=== PATIENT | male | born 1935 | race Asian ===

== ENCOUNTER 2019-06-26 06:33 | Emergency (ER) | payer MEDICARE ==
[~2019-06-26] VITALS: Ht 165.1 cm; Wt 70.5 kg
[2019-06-26 06:40] VITALS: BP 0/0
[2019-06-26] MEDS ORDERED: SODIUM CHLORIDE 0.9% 2,100 ML IV ONE (06:47)
[2019-06-26] MEDS ORDERED: 0.9% SODIUM CHLORIDE 10 ML SYRINGE IVP PRN (07:00)
[2019-06-26 07:03] LABS: BASOPHILS % (AUTO) 0.4 % (0.0-2.0); EOSINOPHILS % (AUTO) 2.4 % (1.0-6.0); HEMATOCRIT 24.8 % (41-53); HEMOGLOBIN 7.8 g/dL (13.5-17.5); LYMPHOCYTES # (AUTO) 3.8 K/uL (1.0-4.8); LYMPHOCYTES % (AUTO) 84.2 % (22.0-44.0); MEAN CORPUSCULAR HEMOGLOBIN 31.4 pg (26.0-34.0); MEAN CORPUSCULAR HGB CONC 31.3 G/dL (31.0-37.0); MEAN CORPUSCULAR VOLUME 100 fL (80-100); MONOCYTES # (AUTO) 0.1 K/uL (0.1-1.0); MONOCYTES % (AUTO) 2.7 % (2.0-9.0); NEUTROPHILS # (AUTO) 0.5 K/uL (1.8-7.7); NEUTROPHILS % (AUTO) 10.3 % (40.0-70.0); PLATELET COUNT (AUTO) 98 K/uL (150-450); RED BLOOD CELL COUNT(AUTO) 2.47 MIL/uL (4.50-5.90); RED CELL DISTRIBUTION WIDTH 13.6 % (11.5-14.5)
[2019-06-26 07:17] LABS: INR 1.6 (0.9-1.1); PROTHROMBIN TIME 16.7 SEC (9.4-11.6)
[2019-06-26 07:29] LABS: LACTIC ACID 12.1 mmol/L (0.4-2.0)
[2019-06-26] MEDS ORDERED: AMLO5TAB9 PO (07:45)
[2019-06-26 07:46] LABS: ALANINE AMINOTRANSFERASE 167 U/L (12-78); ALBUMIN 1.4 g/dL (3.4-5.0); ALKALINE PHOSPHATASE 49 U/L (46-116); ANION GAP 14 mmol/L (8-16); ASPARTATE AMINOTRANSFERASE 203 U/L (15-37); BILIRUBIN,TOTAL 0.2 mg/dL (0.1-1.0); CALCIUM, TOTAL 7.7 mg/dL (8.8-10.5); CARBON DIOXIDE 23 mmol/L (22-29); CHLORIDE 114 mmol/L (98-107); CREATINE KINASE, TOTAL ONLY 242 U/L (39-308); CREATININE 0.92 mg/dL (0.60-1.30); GLUCOSE,RANDOM 255 mg/dL (70-110); SODIUM SERUM 151 mmol/L (136-145); TOTAL PROTEIN, SERUM 3.2 g/dL (6.4-8.2); UREA NITROGEN, BLOOD 11 mg/dL (7-18)
[2019-06-26 07:47] LABS: GLOMERULAR FILTR. RATE CALC > 60 mL/min (>60); POTASSIUM 2.9 mmol/L (3.5-5.1)
[2019-06-26 08:02] LABS: B-TYPE NATRIURETIC PEPTIDE 466 pg/mL (0-100)
== END 2019-06-26 14:10 | disposition expired ==
LOC: EMS 06:34
DX: I46.9 Cardiac arrest, cause unspecified (principal); I10 Essential (primary) hypertension; E78.00 Pure hypercholesterolemia, unspecified; F17.210 Nicotine dependence, cigarettes, uncomplicated
CPT/HCPCS: 31500; 83605; 84145; 92950; 93005; 99291